=== PATIENT | male | born 1985 | race Two or more races ===

== ENCOUNTER 2025-06-09 19:36 | Emergency (ER) | payer MEDICAID, OTHER ==
[~2025-06-09] VITALS: Ht 172.7 cm; Wt 77.3 kg
[2025-06-09 19:44] VITALS: BP 143/94; PULSE 118; RESP 20; TEMP 98.5; O2SAT 98
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
== END 2025-06-09 20:16 | disposition left against medical advice (07) ==
LOC: ER 19:36 → EDBD 19:36 → ER 20:16
DX: S00.83XA Contusion of other part of head, initial encounter (principal); F10.10 Alcohol abuse, uncomplicated; M79.89 Other specified soft tissue disorders; Y04.0XXA Assault by unarmed brawl or fight, initial encounter; Y93.89 Activity, other specified; Y92.89 Other specified places as the place of occurrence of the external cause; Y99.8 Other external cause status